=== PATIENT | male | born 1945 | race Caucasian/White ===

== ENCOUNTER 2020-04-24 20:12 | Emergency (ER) | payer MEDICARE ==
--- NOTE | 2020-04-24 21:08 | ED Physician Documentation ---
PD HPI HEAD INJURY - Stated complaint Stated Complaint: FALL DOWN STAIRS - Chief complaint Chief Complaint: General - History obtained from History obtained from: Patient - History of Present Illness Mechanism of head injury: Fell Where head injury occurred: Other (train station stairway) Timing - onset: Enter time (17:30), Today Pain level now: 1 Location of injury: Other (scalp, right elbow, right lower leg) Associated symptoms: No: LOC, AMS, Amnesia, Nausea / vomiting, Neck pain, Paresthesias Contributing factors: No: Anticoagulated, Intoxicated Recently seen: Not recently seen - Additional information Additional information: tripped and fell going down stairs at a train station at approximately 5:30 PM today, head struck metal railing causing scalp laceration. He also sustained right elbow laceration and right lower leg skin tear. last tetanus booster is unknown. Denies LOC, has pain localized to site of scalp injury (denies generalized BOWER) Review of Systems Skin: reports: Abrasion (s), Laceration (s) Musculoskeletal: reports: Reviewed and negative Neurologic: reports: Head injury. denies: Generalized weakness, Focal weakness, Numbness, Confused, Altered mental status, Headache, LOC PD PAST MEDICAL HISTORY - Past Medical History Past Medical History: No - Past Surgical History Past Surgical History: No - Present Medications Home Medications: Ambulatory Orders Medication Instructions Recorded Confirmed No Known Home Medications 04/24/20 04/24/20 - Allergies Allergies/Adverse Reactions: Allergies Allergy/AdvReac Type Severity Reaction Status Date / Time Penicillins Allergy Anaphylaxis Verified 04/24/20 20:28 - Social History Does the pt smoke?: No Smoking Status: Never smoker PD ED PE NORMAL - Vitals Vital signs reviewed: Yes - General General: Alert and oriented X 3, No acute distress, Well developed/nourished - HEENT HEENT: PERRL, EOMI, Moist mucous membranes PD ED PE EXPANDED - HEENT HEENT Visual: 1 - laceration (3 cm length) - Extremities PARK UE/Hands Visual: 1 - laceration (1 cm with sufficient gapping to visualize underlying soft (adipose) tissue; no bony tendernes. FROM intact) PARK LE visual: 1 - abrasion (skin tear without bony tenderness) Results - Vitals Vitals: Vital Signs - 24 hr 04/24/20 04/24/20 20:24 22:40 Temperature 36.7 C Heart Rate 80 77 Respiratory 16 16 Rate Blood Pressure 154/78 H 139/74 H O2 Saturation 99 99 Oxygen O2 Source Room air Procedures - Laceration (location) Scalp Length in cm: 3 Wound type: Linear Neurovascular status: Sensory intact, Motor intact, Vascular intact Anesthesia: Lidocaine 1%, With bicarb Wound Preparation: Chlorhexadine Skin layer closure: [place] Other: Patient tolerated well, No complications, Neurovascular intact, Tetanus booster given Complexity: Simple Upper extremity right Dorsal Length in cm: 1 Wound type: Linear Neurovascular status: Sensory intact, Motor intact, Vascular intact Tendon involvement: Tendon intact Anesthesia: Lidocaine 1%, With bicarb Wound Preparation: Chlorhexadine Skin layer closure: Nylon, Interrupted, Size #-0 - enter number (4-0) Other: Patient tolerated well, No complications, Neurovascular intact, Dressing applied, Tetanus booster given Complexity: Simple PD MEDICAL DECISION MAKING - ED course Complexity details: considered differential, d/w patient Departure - Departure Disposition: 01 Home, Self Care Clinical Impression: Fall, Scalp laceration, Laceration of elbow, right Condition: Good Instructions: ED Laceration Ext Sutr Stap Tape, ED Laceration Scalp Stitch Or Stap Comments: Follow up with your primary care provider in 7-10 days for removal of both the scalp marla and the elbow stitches Discharge Date/Time: 04/24/20 22:41
[2020-04-24] MEDS ORDERED: BUFFERED LIDOCAINE 10 ML SYRINGE IU STA (21:16)
[2020-04-24] MEDS ORDERED: TETANUS/DIPHTHERIA/PERTUSSIS 0.5 ML SYRINGE IM ONE (21:16)
[2020-04-24] MEDS ORDERED: BACITRACIN ZINC OINT 1 PACKET TOP STA (22:27)
[2020-04-24 22:42] VITALS: BP 139/74
== END 2020-04-24 22:41 | disposition home or self-care (01) ==
LOC: ED 20:12
DX: S01.01XA Laceration without foreign body of scalp, initial encounter (principal); S51.011A Laceration without foreign body of right elbow, initial encounter; S80.811A Abrasion, right lower leg, initial encounter; W10.8XXA Fall (on) (from) other stairs and steps, initial encounter; Y92.522 Railway station as the place of occurrence of the external cause; Z23 Encounter for immunization
CPT/HCPCS: 12002; 90471; 90715; 99283; 99284; A9270

== ENCOUNTER 2020-04-29 03:00 | Emergency (ER) | payer MEDICARE ==
--- NOTE | 2020-04-29 03:05 | ED Physician Documentation ---
PD HPI HEADACHE - Stated complaint Stated Complaint: HEAD PX - History obtained from History obtained from: Patient - History of Present Illness Timing - onset: How many days ago (4) Timing - duration: Days Timing - details: Abrupt onset, Constant Location: Other (neck pain (not headache)) Associated symptoms: Fever (fever Tmax 102 two days ago but not since that time). No: Nausea, Vomiting, Weakness, Numbness Improved by: Rest Worsened by: Moving (movement of neck (flexion, extension, rotation either direction)) Recently seen: Emergency Dept (T+R 04/24/2020) - Additional information Additional information: T+R 5 days ago (04/24/2020) for injuries sustained due to fall (head injury with laceration that was repaired, right elbow laceration that was also repaired). No imaging performed at that time. He returns due to neck pain that he noticed the following day and which has steadily worsened since then. Neck pain is worse with movement involving the neck. Denies BOWER, denies numbness, weakness, bowel/bladder continence problems Review of Systems Constitutional: reports: Fever (two days ago but resolved and not recurred). denies: Chills, Myalgias, Fatigue, Sweats Respiratory: denies: Dyspnea, Cough GI: denies: Abdominal Pain : denies: Incontinent Skin: denies: Rash Musculoskeletal: reports: Neck pain. denies: Back pain, Extremity pain, Joint pain, Extremity swelling, Joint swelling, Pain with weight bearing Neurologic: reports: Head injury. denies: Generalized weakness, Focal weakness, Numbness, Confused, Headache PD PAST MEDICAL HISTORY - Past Medical History Past Medical History: No - Past Surgical History Past Surgical History: No - Present Medications Home Medications: Ambulatory Orders Medication Instructions Recorded Confirmed Cyclobenzaprine [Flexeril] 10 mg PO TID PRN #20 tablet 04/29/20 HYDROcod/ACETAM 5/325 [[place] 5/325] 1 - 2 ea PO Q6H PRN #15 tablet 04/29/20 - Allergies Allergies/Adverse Reactions: Allergies Allergy/AdvReac Type Severity Reaction Status Date / Time Penicillins Allergy Anaphylaxis Verified 04/29/20 03:11 - Living Situation Living Arrangement: reports: At home - Social History Does the pt smoke?: No Smoking Status: Never smoker PD ED PE NORMAL - Vitals Vital signs reviewed: Yes - General General: Alert and oriented X 3, No acute distress, Well developed/nourished - HEENT HEENT: PERRL, EOMI, Pharynx benign, Other (right occipital scalp laceration is c/d/i with marla in place. no erythema, no fluctuance, no discharge, nontender) - Neck Neck: Supple, no meningeal sign, No bony TTP - Extremities Extremities: No deformity, No tenderness to palpate, Normal ROM s pain, No edema, Other (right elbow (flexor surface): wound is C/D/I with sutures in place; no erythema, nontender, no fluctuance) Results - Vitals Vitals: Vital Signs - 24 hr 04/29/20 04/29/20 03:09 04:52 Temperature 36.9 C 36.5 C Heart Rate 81 77 Respiratory 16 17 Rate Blood Pressure 139/87 H 119/74 O2 Saturation 99 94 Oxygen O2 Source Room air - Rads (name of study) CT cervical spine Radiology: Prelim report reviewed, See rad report PD MEDICAL DECISION MAKING - ED course Complexity details: reviewed results, re-evaluated patient, considered differ ential, d/w patient Departure - Departure Disposition: 01 Home, Self Care Clinical Impression: Cervical strain Qualifiers: Encounter type: initial encounter Qualified Code(s): S16.1XXA - Strain of muscle, fascia and tendon at neck level, initial encounter Condition: Good Instructions: ED Sprain Strain Neck Follow-Up: JIM MARINA MD [Primary Care Provider] - Prescriptions: Cyclobenzaprine [Flexeril] 10 mg PO TID PRN #20 tablet PRN Reason: Spasms HYDROcod/ACETAM 5/325 [[place] 5/325] 1 - 2 ea PO Q6H PRN #15 tablet PRN Reason: Pain Discharge Date/Time: 04/29/20 04:52
[2020-04-29] MEDS ORDERED: CYCLOBENZAPRINE 10 MG TABLET PO STA (03:17)
[2020-04-29] MEDS ORDERED: HYDROcod/ACETAM 5/325 MG TABLET PO STA (03:17)
[2020-04-29] MEDS ORDERED: CYCLOBENZAPRINE 10 MG Prepack 2 PO PRN (04:29)
[2020-04-29] MEDS ORDERED: HYDROcod/ACET 5/325 Prepack 4 PO STA (04:29)
[2020-04-29 04:54] VITALS: BP 119/74
--- NOTE | 2020-04-29 09:03 | CT Report ---
PROCEDURE: CERVICAL SPINE WO INDICATIONS: neck pain, recent injury TECHNIQUE: Noncontrast 3 mm thick sections acquired from the skull base to the T4 level. Sagittal and coronal r eformats were then constructed. For radiation dose reduction, the following was used: automated exp osure control, adjustment of mA and/or kV according to patient size. COMPARISON: None. FINDINGS: Image quality: Excellent. Bones: No fractures or dislocations. Visualized superior ribs are intact. Soft tissues: Prevertebral soft tissues are normal in thickness. No paravertebral hematomas. No ap ical pneumothoraces. IMPRESSION: No trauma found. 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 Degenerative thickening of the dentate ligament is seen dorsal to the C2 d ens. Depending on the clinical status follow-up by MR scanning may be warranted to accurately assess for spinal and foraminal stenosis. Reviewed by: Pancho Palacio MD on 04/29/2020 9:02 AM PDT Approved by: Pancho Palacio MD on 04/29/2020 9:02 AM PDT Station ID: [id number]
== END 2020-04-29 04:52 | disposition home or self-care (01) ==
LOC: ED 03:00
DX: S16.1XXA Strain of muscle, fascia and tendon at neck level, initial encounter (principal); W19.XXXA Unspecified fall, initial encounter
CPT/HCPCS: 72125; 99284; A9270

== ENCOUNTER 2024-03-11 16:15 | Emergency (ER) | payer MEDICARE ==
[2024-03-11 16:56] VITALS: O2SAT 99
--- NOTE | 2024-03-11 18:44 | ED Physician Documentation ---
History of Present Illness - Stated complaint Stated Complaint: LT HAND PX - Chief complaint Chief Complaint: Wound - History obtained from History obtained from: Patient - History of Present Illness Timing: Today Pain level max: 0 Pain level now: 0 - Additonal information Additional information: Patient is a 78-year-old male who states that he injured his left hand on a jewelry box about a week ago. He states he just wanted to have it checked to make sure it is healing okay. No swelling. No drainage. No fevers. No chills. Mild redness, no streaking. Tetanus shot is up-to-date. That is on the left hand. Review of Systems Constitutional: denies: Fever, Chills PD PAST MEDICAL HISTORY - Past Medical History Past Medical History: Yes Cardiovascular: High cholesterol Respiratory: None Neuro: None Endocrine/Autoimmune: None GI: None : None HEENT: None Psych: None Musculoskeletal: None Derm: None - Past Surgical History Past Surgical History: No - Present Medications Home Medications: Ambulatory Orders Medication Instructions Recorded Confirmed Rosuvastatin Calcium [Crestor] 1 tab PO DAILY 03/11/24 03/11/24 - Allergies Allergies/Adverse Reactions: Allergies Allergy/AdvReac Type Severity Reaction Status Date / Time Penicillins Allergy Anaphylaxis Verified 03/11/24 16:44 - Social History Does the pt smoke?: No Smoking Status: Never smoker Does the pt drink ETOH?: Yes Does the pt have substance abuse?: No - Immunizations Immunizations are current?: Yes - POLST Patient has POLST: No PD ED PE NORMAL - Vitals Vital signs reviewed: Yes - General General: Alert and oriented X 3, No acute distress - Derm Derm: Warm and dry - Extremities Extremities: Other (0.5 cm circular wound to the dorsum of the left hand in between the thumb and index finger. Minimal surrounding erythema, no warmth, swelling or tenderness. No signs of infection. Neurovascular intact) - Neuro Neuro: Alert and oriented X 3 Results - Vitals Vitals: Vital Signs - 24 hr 03/11/24 16:44 Temperature 36.6 C Heart Rate 62 Respiratory 16 Rate Blood Pressure 152/81 H O2 Saturation 99 Oxygen O2 Source Room air PD Medical Decision Making - ED course Complexity details: considered differential, d/w patient ED course: Patient with a normally healing wound. No warmth or swelling. The mild erythema is consistent with healing skin. Recommend that he stop using bacitracin as this may be causing some of the erythema. There is no sign of secondary infection. No evidence of cellulitis that require antibiotics. Tetanus shot is up-to-date. Patient counseled regarding signs and symptoms for which I believe and urgent re-evaluation would be necessary. Patient with good understanding of and agreement to plan and is comfortable going home at this time This document was made in part using voice recognition software. While efforts are made to proofread this document, sound alike and grammatical errors may occur. Departure - Departure Disposition: 01 Home, Self Care Clinical Impression: Healing wound Condition: Good Instructions: ED Wound Care Follow-Up: JIM MARINA MD [Primary Care Provider] - Comments: Your wound appears to be healing well. There does not appear any evidence of infection. As we discussed I would not utilize any Neosporin on this as it can cause redness to the wound. Please return for worsening redness, swelling or other new or worrisome changes. Forms: PCP List
[2024-03-11 18:53] VITALS: BP 155/87
== END 2024-03-11 18:50 | disposition home or self-care (01) ==
LOC: ED 16:15
DX: L53.9 Erythematous condition, unspecified (principal); E78.00 Pure hypercholesterolemia, unspecified
CPT/HCPCS: 99281; 99282